=== PATIENT | female | born 1950 | race Caucasian/White ===

== ENCOUNTER 2017-07-08 19:56 | Inpatient (IN) | payer MEDICARE ==
[~2017-07-08 19:56] MED LIST: ISOVUE-370 76%-LOCM 1 ML ONE
[2017-07-08] MEDS ORDERED: fentaNYL Citrate/PF 2,000 MCG in Sodium Chloride 0.9% 60 ML IV SCH (20:15)
[2017-07-08 20:28] LABS: Mean Corpuscular HGB CONC 31.2 g/dL (32.0-36.0); Mean Corpuscular Hemoglobin 30.6 pg (27.0-31.0); Mean Corpuscular Volume 98.2 fl (81.0-99.0); Platelet Count 280 thou/uL (130-400); RBC Distribution Width 11.5 % (11.5-14.5); Red Blood Cell (RBC) Count 4.24 mill/uL (4.20-5.40); White Blood Cell (WBC) Count 18.2 thou/uL (4.8-10.8)
[2017-07-08 20:50] LABS: Band 15 % (5-11); Eosinophils 1 % (0-10); Lymphocytes 13 % (21-51); MDiff Complete? YES; Monocytes 9 % (0-10); Neutrophil 62 % (42-75); PLT Morphology Comment Appears Adequate
--- NOTE | 2017-07-08 20:54 | RAD ---
FRONTAL RADIOGRAPH CHEST PORTABLE SUPINE 07/08/17 at 8:07 p.m. COMPARISON: 07/08/17 at 6:09 p.m. HISTORY: Intubated patient. FINDINGS: Nasogastric tube curls in left upper quadrant. Patient is rotated to the left. There is an endotrache al tube in place. It probably extends into the right main stem bronchus. The endotracheal tube is at least 6 cm below the level of the clavicles and should thus be retracted. IMPRESSION: Low lying endotracheal tube. Recommend retraction. Call made to Dr. Penny, 8:15 p.m., 07/08/17. Code CR POS: [facility]
[2017-07-08 20:55] LABS: INR-International Normal Ratio 1.2; PTT 65.1 SEC (22.9-36.1); Prothrombin Time 15.3 SEC (12.0-14.7)
[2017-07-08 20:57] LABS: ALT (SGPT) 140 U/L (8-55); AST (SGOT) 181 U/L (5-34); Albumin 3.9 g/dL (3.4-4.8); Alkaline Phosphatase 137 U/L (40-150); Anion Gap 20 mmol/L (10-20); BUN (Urea Nitrogen) 20 mg/dL (9.8-20.1); Bilirubin, Total 0.4 mg/dL (0.2-1.2); CK (CPK) 334 U/L (29-168); Calc. Creatinine Clearance 0 mL/min (70-130); Calcium 8.5 mg/dL (7.8-10.44); Carbon Dioxide 16 mmol/L (23-31); Chloride 102 mmol/L (98-107); Estimated GFR-MDRD 34; Globulin 3.3 g/dL (2.4-3.5); Glucose 236 mg/dL (80-115); Potassium 4.2 mmol/L (3.5-5.1); Protein, Total 7.2 g/dL (6.0-8.3); Sodium 134 mmol/L (136-145)
[2017-07-08 21:01] LABS: Bilirubin Negative (Negative); Blood, Urine Moderate (Negative); Clarity CLEAR (Clear); Glucose, Urine (Dipstick) 100 mg/dL (Negative); Leukocyte Negative (Negative); Nitrite Negative (Negative); Protein, Urine (Dipstick) 30 mg/dL (Neg-Trace); Specific Gravity, Urine 1.011 (1.002-1.036); Urobilinogen 0.2 mg/dL (0.2-1.0)
[2017-07-08 21:02] LABS: Bacteria/HPF None Seen HPF (None Seen); Hyaline Casts/LPF 0-3 HYALINE CAST LPF (0-3 Hyaline); RBC/HPF 0-3 HPF (0-3); Squamous Epithelial 0-3 HPF (0-3); WBC/HPF 0-3 HPF (0-3)
[2017-07-08 21:18] LABS: Troponin I 0.032 ng/mL (< 0.028)
[2017-07-08 22:30] LABS: CO2 Tension 49.6 mmHg (35.0-45.0); pH, Arterial 7.22 (7.35-7.45)
[2017-07-08 22:31] LABS: Actual Bicarbonate (HCO3a) 19.8 mEq/L (22-26); Base Excess (BEa) -7.9 mEq/L (0 (+/-) 2.5); O2 Tension (PaO2) 116.9 mmHg (80.0-100.0); Potassium - ABG Lab 3.4 mmol/L (3.70-5.30)
[2017-07-08 22:32] LABS: Analyzer IN Cardio ER; Calcium, Ionized 1.1 mmol/L (1.12-1.30); Puncture Site RRA
--- NOTE | 2017-07-08 22:35 | CT ---
HEAD CT WITHOUT CONTRAST 07/08/17 COMPARISON: 09/26/13 HISTORY: Status post CPR, choking episode with aspiration of a hotdog. Unresponsive intubated patient with alt ered mental status. TECHNIQUE: Serial axial CT imaging at 5 mm intervals from the vertex through the skull base without contrast. FINDINGS: Nasogastric tube is present. There is mild mucosal thickening of bilateral ethmoid air cells. There i s no displaced calvarial fracture. No intracranial hemorrhage, midline shift, mass effect or ventricular enlargement. IMPRESSION: No acute intracranial abnormality. POS: [facility]
[2017-07-08] MEDS ORDERED: Vasopressin 40 UNIT, Admixture Fee 1 EACH in Sodium Chloride 0.9% 100 ML IV SCH (22:45)
--- NOTE | 2017-07-08 22:57 | CT ---
CT OF ABDOMEN AND PELVIS 07/08/17 COMPARISON: None. HISTORY: Aspiration, poor breath sounds, status post CPR. TECHNIQUE: Serial axial CT imaging at 5 mm intervals from the thoracic inlet through the upper abdomen with IV c ontrast. Coronal reformatted imaging obtained. FINDINGS: Nasogastric tube extends into the gastric body. There is an endotracheal tube which extends into the left main stem bronchus. There is a 1.3 cm foreign body within the proximal aspect of the left main stem bronchus, best seen o n coronal image 105 and axial image 15 measuring 1.3 cm. Perhaps this represents the aspirated portio n of hotdog mentioned in the patient's history. No axillary, mediastinal or hilar adenopathy. No pneumothorax seen on either side. There is partial consolidation of the posteromedial aspect of th e right upper lobe There is partial consolidation/collapse of both lower lobes, left greater than rig ht. There are areas of reticulonodular density within the posterior superior right middle lobe as wel l. The pulmonary parenchymal opacities may signify volume loss and/or aspiration. There is a small to moderate sized hiatal hernia. There is atherosclerotic calcification of the aortic arch. Osseous structures of the chest demonstrate anterior left second, third, fourth, fifth, sixth, and se venth rib fractures. There are anterior right third, fourth, fifth, sixth, seventh, eighth, and ninth rib fractures. Multilevel degenerative change is noted within the thoracic spine. No free intraperitoneal air is noted. There is a Wall catheter in the urinary bladder. There is a round mass in the pelvis which measures 11.1 x 8.9 cm. This demonstrates peripheral irregu lar calcifications and is felt to most likely represent a prominent fibroid uterus. Recommend correla tion with followup nonemergent pelvic ultrasound for confirmation. There is no evidence for bowel inflammatory change or obstruction. The appendix is visualized. There is a right femoral venous catheter. The liver is unremarkable aside from mild intrahepatic biliary dilatation, likely associated with rene or cholecystectomy. There is fatty atrophy of the pancreas. The spleen is unremarkable as are the kid neys and the left adrenal gland. 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 There is multilevel lower lumbar spine facet hypertrophic change. IMPRESSION: 1. Significant bilateral pulmonary parenchymal opacities suggests atelectasis and/or aspiration. 2. Right main stem bronchus intubation. 3. Foreign body within left main stem bronchus, most consistent with history of aspirated materi al. 4. Numerous bilateral rib fractures. 5. Pelvic mass, likely a fibroid uterus. Recommend confirmation with pelvic ultrasound. Numerous additional incidental findings as above. All findings discussed with Dr. Penny at 10:35 p.m., 07/08/17. Code CR POS: [facility]
--- NOTE | 2017-07-08 23:17 | RAD ---
FRONTAL RADIOGRAPH CHEST 07/08/17 at 11:02 p.m. COMPARISON: 07/08/17 at 8:07 p.m. HISTORY: Re-evaluate endotracheal tube. FINDINGS: The endotracheal tube has been retracted, now overlying the tracheal air column approximately 2.5 cm below the level of the clavicles. Nasogastric tube extends into left upper quadrant. Bibasilar air sp mukesh disease noted, left greater than right, better assessed on recent CT. IMPRESSION: Endotracheal tube and nasogastric tube as above. POS: [facility]
[2017-07-08 23:28] LABS: Actual Bicarbonate (HCO3a) 18.6 mEq/L (22-26); Base Excess (BEa) -8.8 mEq/L (0 (+/-) 2.5); CO2 Tension 46.8 mmHg (35.0-45.0); Hematocrit-ABG 34.4 % (36.0-47.0); pH, Arterial 7.22 (7.35-7.45)
[2017-07-08 23:29] LABS: Analyzer IN Cardio ER; Potassium - ABG Lab 3.8 mmol/L (3.70-5.30)
[2017-07-08 23:30] LABS: Puncture Site RRA
--- NOTE | 2017-07-09 00:15 | HP ---
PRIMARY CARE PHYSICIAN: Dr. Badillo. CHIEF COMPLAINT: Choked on a hot dog and has been unresponsive. HISTORY OF PRESENT ILLNESS: Ms. Matson is a 66-year-old female who lives with her sister. She was in her usual state of health until the night of admission. Her sister and her nephew were here at the bedside and are the historian. Apparently, she choked while eating a hot. Her nephew started CPR an d also first tried to perform a Heimlich maneuver and then started CPR. He was doing this until the EMS arrived. He believes it took about anywhere from 15-30 minutes before the EMS got there and appa rently she was intubated in the ambulance and then brought originally to [place] and then transferre d to our facility for further treatment. The nephew is pretty certain that she choked and did not mccoy ve a seizure or any stroke-like activity prior to the choking episode. Prior to this, there have bee n no other complaints. Her sister says that she had been diabetic before, but had lost a lot of weig ht and had been taken off of diabetes medications. She had gained some weight in the past, but other blake no other complaints that she knows about. REVIEW OF SYSTEMS: Unobtainable as the patient is intubated. PAST MEDICAL HISTORY: Taken from the sister at bedside and includes hypertension, hypothyroidism, me ntal retardation, diabetes mellitus type 2, and gastroesophageal reflux disease as well as irritable bowel syndrome. PAST SURGICAL HISTORY: She has had bilateral total knee replacement as well as cholecystectomy. ALLERGIES: No known drug allergies. FAMILY HISTORY: Significant for heart disease and diabetes mellitus. SOCIAL HISTORY: She is a nonsmoker, nondrinker, single. She lives with her sister, there is no chil dren. Sister's name is Lesley Hernandez and she is the medical decision maker. MEDICATIONS: These are taken from the bottles in the room include aspirin 81 mg daily, trazodone 100 mg at bedtime, doxepin 10 mg at bedtime, escitalopram 5 mg daily, metoprolol extended release 50 mg daily, quinapril 40 mg in the a.m. and 20 mg in the p.m., levothyroxine 100 mcg daily, pantoprazole 4 0 mg twice a day, lovastatin 20 mg at bedtime, amlodipine 5 mg daily, benztropine 2 mg twice a day. PHYSICAL EXAMINATION: GENERAL: She is intubated. Apparently, she had some movement spontaneous prior to being intubated. VITAL SIGNS: Blood pressure currently is approximately 120/50; however, she is currently on a Levoph ed drip. Her heart rate is approximately 110. HEENT: Her pupils are approximately about 6 mm and sluggish. NECK: There is no adenopathy. LUNGS: She has got some rales bilaterally. CARDIOVASCULAR: She has a normal S1, S2. I did not appreciate an S3 or S4. No murmurs, clicks or r ubs. ABDOMEN: Obese, positive for bowel sounds. EXTREMITIES: There is no edema. NEUROLOGIC: She had been moving all extremities. SIGNIFICANT LABORATORY DATA: White blood cell count 18.2, hemoglobin 13, hematocrit is 41.6, platele t count is 280, INR is 1.2. Chemistries: Sodium 134, potassium 4.2, chloride is 102, CO2 is 16, BUN of 20, creatinine 1.52, glucose is 236, lactic acid 3.9, AST 181, ALT is 140, creatine kinase is 334 . She had a CT scan of the brain which was negative for any acute intracranial abnormality and she h ad a CT scan of the chest, abdomen, and pelvis and there was some atelectasis or opacities in both of the lung parenchyma. There was foreign body in the left main stem bronchus. There are numerous john paul ateral rib fractures and a pelvic mass, likely representing a uterine fibroid. ASSESSMENT AND PLAN: This is a 66-year-old female who unfortunately suffered a choking episode which led to a cardiopulmonary arrest. She is being admitted to the ICU. She is currently on the ventila tor and will continue ventilator support. Pulmonology has been consulted and actually Dr. Tuttle has just arrived in the emergency room and to help evaluate the patient. We will place her on a sedation protocol, empiric antibiotics for aspiration. Sliding scale insulin with regards to her diabetes me llitus and further recommendations to follow.
[2017-07-09] MEDS ORDERED: Morphine 2 MG/ML SYRINGE SLOW IVP PRN (00:19)
[2017-07-09] MEDS ORDERED: Fentanyl BOLUS 250 ML IVPB PRN (00:19)
[2017-07-09] MEDS ORDERED: DISCONTINUE PREVIOUS NARCOTIC PAIN MEDICATIONS AND BENZODIAZEPINES FS SCH (00:19)
[2017-07-09] MEDS ORDERED: Lorazepam 2 MG/ML VIAL SLOW IVP PRN (00:19)
[2017-07-09] MEDS ORDERED: Sodium Chloride 0.9% 1,000 ML IV SCH (00:22)
[2017-07-09] MEDS ORDERED: Acetaminophen 325 MG TAB PO PRN (00:22)
[2017-07-09] MEDS ORDERED: Norepinephrine 8 MG/250 ML BAG IVPB PRN ×2 (00:23→05:51)
[2017-07-09 00:41] LABS: Lactic Acid 3.6 mmol/L (0.5-2.2)
[2017-07-09] MEDS ORDERED: HumaLOG 300 UNITS/3 ML VIAL SC PRN (00:45)
[2017-07-09] MEDS ORDERED: Dextrose 50% Abboject 50 ML SYRINGE SLOW IVP PRN (00:45)
[2017-07-09] MEDS ORDERED: Dextrose 5% in Water 1,000 ML IV PRN (00:45)
[2017-07-09] MEDS ORDERED: Acetaminophen 650 MG Suppository PR PRN (00:45)
[2017-07-09 00:49] LABS: Troponin I 0.107 ng/mL (< 0.028)
[2017-07-09 01:39] VITALS: BMI 35.6
[2017-07-09] MEDS: Sodium Chloride 0.9% 1,000 ML IV SCH ×2 (02:03→09:29)
[2017-07-09] MEDS: Propofol 1,000 MG/100 ML VIAL IV PRN ×2 (02:26→22:06)
[2017-07-09 04:33] LABS: Band 23 % (5-11); Hemoglobin 11.2 g/dL (12.0-16.0); Lymphocytes 5 % (21-51); MDiff Complete? YES; Mean Corpuscular HGB CONC 32.4 g/dL (32.0-36.0); Mean Corpuscular Hemoglobin 31.6 pg (27.0-31.0); Mean Corpuscular Volume 97.4 fl (81.0-99.0); Mean Platelet Volume 7.2 fL (7.4-10.4); Monocytes 3 % (0-10); Neutrophil 69 % (42-75); PLT Morphology Comment Appears Adequate; Platelet Count 221 thou/uL (130-400); RBC Distribution Width 11.6 % (11.5-14.5); Red Blood Cell (RBC) Count 3.53 mill/uL (4.20-5.40); White Blood Cell (WBC) Count 11.6 thou/uL (4.8-10.8)
[2017-07-09 04:59] LABS: Troponin I 0.133 ng/mL (< 0.028)
[2017-07-09 05:06] LABS: Anion Gap 14 mmol/L (10-20); BUN (Urea Nitrogen) 21 mg/dL (9.8-20.1); Calc. Creatinine Clearance 58 mL/min (70-130); Calcium 7.5 mg/dL (7.8-10.44); Carbon Dioxide 17 mmol/L (23-31); Chloride 108 mmol/L (98-107); Estimated GFR-MDRD 37; Glucose 210 mg/dL (80-115); Potassium 4.3 mmol/L (3.5-5.1); Sodium 135 mmol/L (136-145)
[2017-07-09] MEDS: Piperacillin/Tazobactam 3.375 GM in Sodium Chloride 0.9% 100 ML IVPB SCH ×3 (05:53→18:08)
[2017-07-09] MEDS: HumaLOG 300 UNITS/3 ML VIAL SC PRN ×3 (05:58→18:13)
[2017-07-09] MEDS ORDERED: Ondansetron PF 4 MG/2 ML Vial IVP PRN (07:32)
[2017-07-09] MEDS ORDERED: Bisacodyl 10 MG SUPP PR PRN (07:32)
[2017-07-09] MEDS ORDERED: Eucerin (Mineral Oil/Petrolatum,White) 30 gm Jar TOP PRN (07:32)
[2017-07-09] MEDS ORDERED: Artificial Tears 18 DROP/0.9 ML EA EYE PRN (07:32)
[2017-07-09] MEDS ORDERED: Fleet Enema 133 ML BOT PR PRN (07:32)
[2017-07-09] MEDS ORDERED: Ondansetron ODT 4 MG TAB PO PRN (07:32)
--- NOTE | 2017-07-09 08:01 | RAD ---
PORTABLE CHEST 1 VIEW: DATE: 07/09/17. TIME: 7:33 a.m. HISTORY: Respiratory failure. FINDINGS/IMPRESSION: Comparison is made with the exam of previous night. The tip of the endotracheal tube is just above t he level of the clavicular heads. Nasogastric tube is within the stomach. There are patchy opacitie s in the right lung and consolidation/atelectatic change the left lung base. No pneumothoraces are s een. POS: [facility]
[2017-07-09 08:05] LABS: Actual Bicarbonate (HCO3a) 17.4 mEq/L (22-26); Base Excess (BEa) -7.6 mEq/L (0 (+/-) 2.5); CO2 Tension 33.5 mmHg (35.0-45.0); O2 Tension (PaO2) 61.8 mmHg (80.0-100.0); pH, Arterial 7.33 (7.35-7.45)
[2017-07-09 08:06] LABS: Hematocrit-ABG 30.9 % (36.0-47.0); Hemoglobin (Hb) 10.7 g/dL (12.0-16.0)
[2017-07-09 08:13] LABS: ALV-art Gradient 395.425 (0-20); Analyzer IN Cardio OR; Carboxyhemoglobin (COHb) 1.1 gm% (0.0-3.0); Potassium - ABG Lab 4.1 mmol/L (3.70-5.30); Puncture Site RBA
[2017-07-09] MEDS ORDERED: Famotidine/PF 20 mg/2ml Vial SLOW IVP SCH (09:00)
[2017-07-09] MEDS: Enoxaparin Sodium 40 MG/0.4 ML SYRINGE SC SCH (09:20)
[2017-07-09] MEDS: Famotidine/PF 20 mg/2ml Vial SLOW IVP SCH (09:22)
--- NOTE | 2017-07-09 09:39 | PDOC.PN ---
- Subjective Encounter Start Date: 07/09/17 Encounter Start Time: 07:00 -: old records requested/rev pt is intubated and sedated, Patient seen and examined. No overnight events - Objective Resuscitation Status: Resuscitation Status FULL:Full Resuscitation MAR Reviewed: Yes Vital Signs & Weight: Vital Signs (12 hours) Temp Pulse Resp BP Pulse Ox 07/09/17 08:00 99.7 F H 07/09/17 06:36 108 H 108/60 07/09/17 04:00 98.5 F 20 07/09/17 02:37 107 H 122/63 07/09/17 00:30 105 H 07/09/17 00:15 97.8 F 105 H 22 H 93 L Weight Weight 207 lb 14.334 oz Most Recent Monitor Data Heart Rate from ECG 110 NIBP 126/78 NIBP BP-Mean 96 Respiration from ECG 20 SpO2 95 I&O: 07/08/17 07/09/17 07/10/17 06:59 06:59 06:59 Intake Total 18 Output Total 370 70 Balance -352 -70 Result Diagrams: 07/09/17 04:06 07/09/17 04:06 Additional Labs: Accuchecks 07/09/17 07/09/17 05:58 03:00 POC Glucose 213 H 223 H Radiology Reviewed by me: Yes (chest xray) EKG Reviewed by me: Yes (nsr) Phys Exam - Physical Examination Constitutional: NAD intubated, sedated NG tube+ HEENT: PERRLA, sclera anicteric Neck: no JVD, supple Respiratory: no wheezing, no rales, no rhonchi Cardiovascular: RRR, no significant murmur, no rub Gastrointestinal: soft, no distention, positive bowel sounds Musculoskeletal: no edema, pulses present Lymphatic: no nodes Skin: no rash, normal turgor Dx/Plan (1) Acute respiratory failure with hypoxia and hypercapnia Code(s): J96.01 - ACUTE RESPIRATORY FAILURE WITH HYPOXIA; J96.02 - ACUTE RESPIRATORY FAILURE WITH HYPERCAPNIA Status: Acute (2) Acidosis, metabolic, with respiratory acidosis Code(s): E87.4 - MIXED DISORDER OF ACID-BASE BALANCE Status: Acute (3) Acute kidney failure Status: Acute (4) Aspiration pneumonia Code(s): J69.0 - PNEUMONITIS DUE TO INHALATION OF FOOD AND VOMIT Status: Acute (5) Bandemia Code(s): D72.825 - BANDEMIA Status: Acute (6) Cardiopulmonary arrest with successful resuscitation Code(s): I46.9 - CARDIAC ARREST, CAUSE UNSPECIFIED Status: Acute (7) Demand ischemia of myocardium Code(s): I24.8 - OTHER FORMS OF ACUTE ISCHEMIC HEART DISEASE Status: Acute (8) Ischemic hepatitis Code(s): K75.9 - INFLAMMATORY LIVER DISEASE, UNSPECIFIED Status: Acute (9) Anxiety and depression Code(s): F41.8 - OTHER SPECIFIED ANXIETY DISORDERS Status: Chronic (10) Dyslipidemia Code(s): E78.5 - HYPERLIPIDEMIA, UNSPECIFIED Status: Chronic (11) GERD (gastroesophageal reflux disease) Code(s): K21.9 - GASTRO-ESOPHAGEAL REFLUX DISEASE WITHOUT ESOPHAGITIS Status: Chronic (12) Hypertension Code(s): I10 - ESSENTIAL (PRIMARY) HYPERTENSION Status: Chronic (13) Hypothyroidism Code(s): E03.9 - HYPOTHYROIDISM, UNSPECIFIED Status: Chronic (14) Normocytic normochromic anemia Code(s): D64.9 - ANEMIA, UNSPECIFIED Status: Chronic (15) Obesity (BMI 30-39.9) Code(s): E66.9 - OBESITY, UNSPECIFIED Status: Chronic (16) Uterine fibroid Code(s): D25.9 - LEIOMYOMA OF UTERUS, UNSPECIFIED Status: Chronic - Plan cont current plan of care, continue antibiotics, respiratory therapy * currently on zosyn * ventilator sedation protocol * vent per pulmonary * will monitor labs * she has multiple organ involvement * prognosis is guarded * medication reviewed as below * symptomatic treatment. * will give her bolus fluid this morning for her hypotension and tachycardia Review of Systems - Review of Systems Other: unable to review due to intubated status - Medications/Allergies Allergies/Adverse Reactions: Allergies Allergy/AdvReac Type Severity Reaction Status Date / Time No Allergy Information Allergy Verified 07/09/17 05:06 Available Medications: Current Medications Acetaminophen (Tylenol) 650 mg PO Q4H PRN PRN Reason: Headache/Fever or Pain Stop: 07/09/17 10:30 Acetaminophen (Tylenol) 650 mg SD Q4H PRN PRN Reason: Headache/Fever or Pain Artificial Tears (Tears Naturale) 0 drop EA EYE PRN PRN PRN Reason: Dry Eyes Bisacodyl (Dulcolax) 10 mg SD DAILYPRN PRN PRN Reason: Constipation Dextrose/Water (Dextrose 50%) 25 gm SLOW IVP PRN PRN PRN Reason: Hypoglycemia Enoxaparin Sodium (Lovenox) 40 mg SC 0900 [facility] Last Admin: 07/09/17 09:20 Dose: 40 mg Famotidine (Pepcid) 20 mg SLOW IVP Q24HR [facility] Last Admin: 07/09/17 09:22 Dose: 20 mg Glucagon (Glucagon) 1 mg IM PRN PRN PRN Reason: Hypoglycemia Hydralazine HCl (Apresoline) 10 mg SLOW IVP Q4H PRN PRN Reason: Systolic BP > 180 Fentanyl Citrate 2,000 mcg/ (Sodium Chloride) 100 mls @ 0 mls/hr IV INF [facility]; Per Protocol PRN Reason: Protocol Stop: 08/08/17 00:19 Fentanyl Citrate (Fentanyl Bolus) 250 mls @ 0 mls/hr IVPB PRN PRN; As Directed PRN Reason: Breakthrough pain Stop: 08/08/17 00:19 Dextrose/Water (D5w) 1,000 mls @ 0 mls/hr IV .Q0M PRN; As Directed PRN Reason: Hypoglycemia Sodium Chloride (Normal Saline 0.9%) 1,000 mls @ 75 mls/hr IV .[id number] [facility] Last Admin: 07/09/17 09:29 Dose: 1,000 mls Piperacillin Sod/Tazobactam (Sod 3.375 gm/ Sodium Chloride) 100 mls @ 200 mls/ hr IVPB Q6HR [facility] Last Admin: 07/09/17 05:53 Dose: 100 mls Norepinephrine Bitartrate (Levophed) 250 mls @ 0 mls/hr IVPB INF PRN; Protocol ; Titrate PRN Reason: Blood Pressure Insulin Human Lispro (Humalog) 0 units SC .MODERATE SLIDING SC PRN PRN Reason: Moderate Correctional Scale Last Admin: 07/09/17 05:58 Dose: 4 unit Insulin Human Lispro (Humalog) 0 units SC .BEDTIME SLIDING SC PRN PRN Reason: Bedtime Correctional Scale Lorazepam (Ativan) 2 mg SLOW IVP Q2H PRN PRN Reason: Anxiety to achieve Mitchell 2-3 Stop: 08/08/17 00:19 Mineral Oil/White Petrolatum (Eucerin Cream) 0 gm TOP BIDPRN PRN PRN Reason: Dry Skin Morphine Sulfate (Morphine) 2 mg SLOW IVP Q2H PRN PRN Reason: Breakthrough pain Stop: 08/08/17 00:22 Ondansetron HCl (Zofran Odt) 4 mg PO Q6H PRN PRN Reason: Nausea/Vomiting Ondansetron HCl (Zofran) 4 mg IVP Q6H PRN PRN Reason: Nausea/Vomiting Pneumococcal 13-Valent Conj Vacc (Prevnar) 0.5 ml IM .ONCE ONE Stop: 07/11/17 09:01 Propofol (Diprivan) 1,000 mg IV INF PRN; Protocol PRN Reason: TO ACHIEVE MITCHELL SCORE 2-3 Stop: 08/08/17 00:19 Last Admin: 07/09/17 02:26 Dose: 1,000 mg Sodium Biphosphate/Sodium Phosphate (Fleet Enema) 133 ml SD ONE PRN PRN Reason: Constipation Stop: 07/15/17 07:33 Sodium Chloride (Flush - Normal Saline) 10 ml IVF Q12HR [facility] Last Admin: 07/09/17 09:20 Dose: 10 ml Sodium Chloride (Flush - Normal Saline) 10 ml IVF PRN PRN PRN Reason: Saline Flush
--- NOTE | 2017-07-09 10:29 | CON ---
DATE OF CONSULTATION: 07/08/2017 HISTORY OF PRESENT ILLNESS: Ms. Matson was eating with family this evening and apparently choked on a hot dog. She had removal of the obstruction by her nephew. CPR was begun very shortly thereafter, which she had 15 minutes of CPR before the first responders arrived and then I believe there was abou t another 20 minutes before the environmental director arrived. She has a 6-[address] Family tells me she was awaken up over in [place] and was sedated prior to transfer. I was told by the physician here that she had not received any sedation. She was hypotensive when I was called. She had received a liter prior to arrival and a liter here. I recommended 2 more liters of fluid while I was driving to the hospital. When I arrived here, her b lood pressure was over 100 systolic. Her heart rate was 90. Respiratory rate was per mechanical pablito tilation. She is on a transfer ventilator, so I cannot really review any of her pulmonary mechanics. PHYSICAL EXAMINATION: EYES: Pupils are sluggish. Sclerae are anicteric. LUNGS: Remarkable for coarse equal breath sounds. HEART: Regular rhythm. ABDOMEN: Soft. EXTREMITIES: Without asymmetry. There is no other information immediately available as far as recent or prior health. ALLERGIES: There were no reported drug allergies. IMPRESSION: Status post cardiorespiratory arrest. I am told that there was a weak pulse when the EM Ts arrived. Hopefully, CPR, which was done from what I can tell very promptly will be somewhat effective at minim izing her hypoperfusion injury. If she starts waking up, we will have to consider changing out her endotracheal tube. LABORATORY DATA: Her white count is 18.2, hemoglobin 13, platelets 280,000. Sodium 134, potassium 4 .2, chloride 102, bicarbonate 16, BUN 20, creatinine 1.52. A pH of 7.22, CO2 of 49, pO2 of 116. This is on a rate of 12. The rate will need to be increased to 20. IMPRESSION: Status post cardiorespiratory arrest associated with foreign body aspiration (hot dog). Chest radiograph has been reviewed by me. Her ET tube is in proper position at this point in time. There are no pulmonary infiltrates, she will connected to a regular volume ventilator since she arri ves in the ICU. CRITICAL CARE TIME: 35 minutes.
--- NOTE | 2017-07-09 12:58 | PRG ---
DATE OF SERVICE: 07/09/2017 SUBJECTIVE: Ms. Matson has not improved neurologically. She is moving, overbreathing the vent and mccoy s corneals and gag and cough today. OBJECTIVE: VITAL SIGNS: Her blood pressure is 97/60, heart rate 113, respiratory rate is 20, oximetry is 95%. HEENT: Pupils are sluggish to react. LUNGS: Clear. CARDIOVASCULAR: Regular rhythm, S1 and S2 are normal. ABDOMEN: Soft. EXTREMITIES: Without asymmetry. LABORATORY DATA: White count 11.6, hemoglobin 11.2, platelets 221,000. Sodium 135, potassium 4.3, chloride 108, bicarbonate 17, BUN 21, creatinine 1.43. PH 7.33, CO2 33, pO2 61. IMPRESSION: Status post cardiorespiratory arrest. She had CPR for 30 minutes, although EMS said she had a pulse when they arrived. It is unclear whether or not there was actually a pulse in my opinio n. She appears to have sustained significant anoxic injury. We will need to continue for several mo re days before we can decide whether or not she is improving. Other problems include acute on chroni c kidney disease, mild metabolic acidosis that is improving, mild anemia with high normal mean corpus cular volume. We are not having any acute ventilation issues. We will continue with daily labs, chest x-rays and n eurological exams. Her prognosis is quite guarded. ADDENDUM: She will have enteral feeds started. Family will be updated. Here, when I made rounds today, I had a long meeting with them late last nig ht; I explained to them this will be a very slow process if she will recover from this neurologically . Critical care time 30 minutes.
[2017-07-09] MEDS: fentaNYL Citrate/PF 2,000 MCG in Sodium Chloride 0.9% 60 ML IV SCH (17:50)
[2017-07-10 05:45] LABS: Anion Gap 11 mmol/L (10-20); BUN (Urea Nitrogen) 32 mg/dL (9.8-20.1); Calc. Creatinine Clearance 43 mL/min (70-130); Calcium 8.4 mg/dL (7.8-10.44); Carbon Dioxide 19 mmol/L (23-31); Chloride 111 mmol/L (98-107); Estimated GFR-MDRD 26; Glucose 183 mg/dL (80-115); Potassium 3.8 mmol/L (3.5-5.1); Sodium 137 mmol/L (136-145)
[2017-07-10 05:51] LABS: Band 9 % (5-11); Hemoglobin 9.4 g/dL (12.0-16.0); Lymphocytes 9 % (21-51); MDiff Complete? YES; Mean Corpuscular HGB CONC 31.4 g/dL (32.0-36.0); Mean Corpuscular Hemoglobin 30.2 pg (27.0-31.0); Mean Corpuscular Volume 96.3 fl (81.0-99.0); Mean Platelet Volume 7.6 fL (7.4-10.4); Metamyelocyte 5 % (0-0); Neutrophil 77 % (42-75); PLT Morphology Comment Appears Adequate; Platelet Count 202 thou/uL (130-400); Polychromasia SLIGHT = 2-3 cells (100X) (0-2/hpf); RBC Distribution Width 11.8 % (11.5-14.5); White Blood Cell (WBC) Count 10.6 thou/uL (4.8-10.8)
[2017-07-10] MEDS: Piperacillin/Tazobactam 3.375 GM in Sodium Chloride 0.9% 100 ML IVPB SCH ×4 (06:00→17:21)
[2017-07-10] MEDS: Sodium Chloride 0.9% 1,000 ML IV SCH ×2 (07:22→16:17)
[2017-07-10] MEDS: Enoxaparin Sodium 40 MG/0.4 ML SYRINGE SC SCH (08:08)
[2017-07-10] MEDS: Famotidine/PF 20 mg/2ml Vial SLOW IVP SCH (08:08)
[2017-07-10 08:42] LABS: Actual Bicarbonate (HCO3a) 19.1 mEq/L (22-26); CO2 Tension 40.9 mmHg (35.0-45.0); Carboxyhemoglobin (COHb) 0.8 gm% (0.0-3.0); Hematocrit-ABG 26.3 % (36.0-47.0); Hemoglobin (Hb) 8.2 g/dL (12.0-16.0); O2 Tension (PaO2) 64.7 mmHg (80.0-100.0); pH, Arterial 7.29 (7.35-7.45)
[2017-07-10 08:43] LABS: ALV-art Gradient 311.975 (0-20); Calcium, Ionized 1.2 mmol/L (1.12-1.30); Puncture Site RRA
--- NOTE | 2017-07-10 08:54 | PDOC.PN ---
- Subjective Encounter Start Date: 07/10/17 Encounter Start Time: 08:52 Subjective: seen and examined still on the vent - Objective Resuscitation Status: Resuscitation Status FULL:Full Resuscitation Vital Signs & Weight: Vital Signs (12 hours) Temp Pulse Resp BP Pulse Ox 07/10/17 08:20 108 H 124/63 07/10/17 08:00 99.1 F 106 H 20 96 07/10/17 04:00 97.5 F L 20 07/10/17 02:07 104 H 115/77 07/10/17 00:00 98.6 F 20 07/09/17 22:41 117 H Weight Admit Weight 207 lb 14.32 oz Weight 207 lb 14.32 oz Most Recent Monitor Data Heart Rate from ECG 106 NIBP 118/59 NIBP BP-Mean 71 Respiration from ECG 20 SpO2 96 I&O: 07/09/17 07/10/17 07/11/17 06:59 06:59 06:59 Intake Total 18 2981.1 Output Total 370 503 320 Balance -352 2478.1 -320 Result Diagrams: 07/10/17 05:23 07/10/17 05:23 Additional Labs: Accuchecks 07/10/17 07/09/17 07/09/17 01:58 18:14 12:21 POC Glucose 159 H 173 H 192 H Phys Exam - Physical Examination Constitutional: NAD HEENT: PERRLA, moist MMs, sclera anicteric Neck: no nodes, no JVD, supple Respiratory: no wheezing vented sounds Cardiovascular: RRR, no significant murmur, no rub Gastrointestinal: soft, non-tender, no distention, positive bowel sounds Musculoskeletal: pulses present Dx/Plan (1) Acidosis, metabolic, with respiratory acidosis Code(s): E87.4 - MIXED DISORDER OF ACID-BASE BALANCE Status: Acute (2) Acute kidney failure Status: Acute (3) Acute respiratory failure with hypoxia and hypercapnia Code(s): J96.01 - ACUTE RESPIRATORY FAILURE WITH HYPOXIA; J96.02 - ACUTE RESPIRATORY FAILURE WITH HYPERCAPNIA Status: Acute (4) Aspiration pneumonia Code(s): J69.0 - PNEUMONITIS DUE TO INHALATION OF FOOD AND VOMIT Status: Acute (5) Cardiopulmonary arrest with successful resuscitation Code(s): I46.9 - CARDIAC ARREST, CAUSE UNSPECIFIED Status: Acute (6) Demand ischemia of myocardium Code(s): I24.8 - OTHER FORMS OF ACUTE ISCHEMIC HEART DISEASE Status: Acute (7) Ischemic hepatitis Code(s): K75.9 - INFLAMMATORY LIVER DISEASE, UNSPECIFIED Status: Acute (8) Dyslipidemia Code(s): E78.5 - HYPERLIPIDEMIA, UNSPECIFIED Status: Chronic (9) GERD (gastroesophageal reflux disease) Code(s): K21.9 - GASTRO-ESOPHAGEAL REFLUX DISEASE WITHOUT ESOPHAGITIS Status: Chronic (10) Hypertension Code(s): I10 - ESSENTIAL (PRIMARY) HYPERTENSION Status: Chronic (11) Hypothyroidism Code(s): E03.9 - HYPOTHYROIDISM, UNSPECIFIED Status: Chronic (12) Obesity (BMI 30-39.9) Code(s): E66.9 - OBESITY, UNSPECIFIED Status: Chronic - Plan cont current plan of care, plan discussed w/ family, rivas catheter, continue antibiotics, PT/OT, foster care social worker, respiratory therapy Vent management per pulmonary -: Prognosis guarded * .
--- NOTE | 2017-07-10 09:56 | PRG ---
DATE OF SERVICE: 07/10/2017 Thirty-five minutes critical care time. SUBJECTIVE: The patient remains intubated on mechanical ventilation. When stimulated, she will with draw with her left leg and both arms. She gets very agitated when stimulated in terms of her heart r ate going up. PHYSICAL EXAMINATION: VITAL SIGNS: Temperature 99.1, pulse anywhere from 108 to 153, blood pressure 152/105. A 24-hour in take 2981, output 503, all of that through urine. HEENT: Pupils are reactive. Sclerae are anicteric. Oropharynx is clear. NECK: No JVD. LUNGS: Clear anteriorly. CARDIOVASCULAR: S1, S2, tachycardic. ABDOMEN: Soft, obese, nontender. EXTREMITIES: Trace edema. LABORATORY DATA: White blood cell count 10.6, hematocrit 29.9, platelet count 202. PH of 7.29, pCO2 of 40, pO2 of 64 on SIMV rate 20, tidal volume 500, PEEP 7, pressure support 10, FIO2 60%. Sodium 1 37, potassium 3.8, chloride 111, CO2 of 19, BUN 32, creatinine 1.9, glucose 183. ASSESSMENT: 1. Status post prolonged cardiopulmonary arrest with deep anoxic brain injury. 2. Renal insufficiency. 3. Acute respiratory failure, requiring mechanical ventilation. 4. Metabolic acidosis. PLAN: Continue supportive care with tube feeds. Continue antibiotics. Continue sedation. Prognosi s is guarded.
--- NOTE | 2017-07-10 10:51 | RAD ---
PORTABLE CHEST 1 VIEW: Date: 07/10/17 Time: 0525 hours HISTORY: Respiratory failure. FINDINGS/IMPRESSION: Comparison made with exam from previous day. The previously noted patchy opacities in the lungs demonstrate interval worsening. Endotracheal and n asogastric tube positions are unchanged. POS: [facility]
[2017-07-10] MEDS: HumaLOG 300 UNITS/3 ML VIAL SC PRN ×2 (12:02→17:22)
[2017-07-10] MEDS: Propofol 1,000 MG/100 ML VIAL IV PRN ×2 (12:24→19:59)
[2017-07-11] MEDS: Piperacillin/Tazobactam 3.375 GM in Sodium Chloride 0.9% 100 ML IVPB SCH ×4 (00:36→17:44)
[2017-07-11] MEDS: HumaLOG 300 UNITS/3 ML VIAL SC PRN ×4 (01:28→18:19)
[2017-07-11] MEDS: Propofol 1,000 MG/100 ML VIAL IV PRN ×3 (03:01→18:10)
[2017-07-11 04:25] LABS: Band 18 % (5-11); Eosinophils 1 % (0-10); Hemoglobin 8.3 g/dL (12.0-16.0); Lymphocytes 14 % (21-51); MDiff Complete? YES; Mean Corpuscular Hemoglobin 31.4 pg (27.0-31.0); Mean Platelet Volume 7.7 fL (7.4-10.4); Monocytes 3 % (0-10); Neutrophil 64 % (42-75); PLT Morphology Comment Appears Adequate; Platelet Count 144 thou/uL (130-400); RBC Distribution Width 11.8 % (11.5-14.5); Red Blood Cell (RBC) Count 2.64 mill/uL (4.20-5.40)
[2017-07-11 04:32] LABS: Anion Gap 11 mmol/L (10-20); BUN (Urea Nitrogen) 25 mg/dL (9.8-20.1); Calc. Creatinine Clearance 58 mL/min (70-130); Calcium 8.6 mg/dL (7.8-10.44); Carbon Dioxide 20 mmol/L (23-31); Chloride 113 mmol/L (98-107); Estimated GFR-MDRD 37; Glucose 189 mg/dL (80-115); Potassium 3.6 mmol/L (3.5-5.1); Sodium 140 mmol/L (136-145)
[2017-07-11] MEDS: Sodium Chloride 0.9% 1,000 ML IV SCH (05:25)
[2017-07-11 07:03] LABS: Actual Bicarbonate (HCO3a) 18.3 mEq/L (22-26); Base Excess (BEa) -6.4 mEq/L (0 (+/-) 2.5); CO2 Tension 32.5 mmHg (35.0-45.0); Hematocrit-ABG 21.5 % (36.0-47.0); Hemoglobin (Hb) 7.6 g/dL (12.0-16.0); O2 Tension (PaO2) 75.2 mmHg (80.0-100.0); Potassium - ABG Lab 3.5 mmol/L (3.70-5.30); pH, Arterial 7.37 (7.35-7.45)
[2017-07-11 07:04] LABS: ALV-art Gradient 311.975 (0-20); Calcium, Ionized 1.2 mmol/L (1.12-1.30); Puncture Site RRA
[2017-07-11] MEDS ORDERED: Furosemide 40 MG/4 ML VIAL SLOW IVP SCH (08:00)
[2017-07-11] MEDS: Enoxaparin Sodium 40 MG/0.4 ML SYRINGE SC SCH (08:34)
[2017-07-11] MEDS: Famotidine/PF 20 mg/2ml Vial SLOW IVP SCH (08:36)
--- NOTE | 2017-07-11 08:50 | RAD ---
PORTABLE CHEST 1 VIEW: Date: 07/11/17 Time: 0512 hours HISTORY: Respiratory failure. FINDINGS/IMPRESSION: There is minimal improvement in the patchy opacities in the right lung since yesterday's exam. Remain evita of exam is otherwise stable. POS: [facility]
[2017-07-11] MEDS ORDERED: Levothyroxine 100 MCG SDV SLOW IVP SCH (09:00)
[2017-07-11] MEDS ORDERED: Prevnar 13-Val Conj/PF 0.5 ML SYRINGE IM ONE (09:00)
--- NOTE | 2017-07-11 09:01 | PRG ---
DATE OF SERVICE: 07/11/2017 SUBJECTIVE: The patient is seen and examined at bedside. She is intubated and sedated. There were no any unexpected events overnight. OBJECTIVE: VITAL SIGNS: Blood pressure is 156/76, pulse is 109, respiratory rate is 18, pulse oximetry is 92%. She is on FIO2 of 60%, tidal volume is 500, frequency is 20. GENERAL: She is orally intubated. HEENT: Her pupils are approximately 2 mm, minimally responding to light. CHEST: Rales bilaterally, no wheezing. HEART: S1, S2, tachycardic, no S3, no S4. ABDOMEN: Soft, nondistended. Bowel sounds are present. EXTREMITIES: No clubbing, cyanosis or edema. She has warm extremities. Pulses are palpable on both feet. LABORATORY DATA: Showed a white count of 8.0, hemoglobin 8.3, hematocrit 25.1, platelet count of 144 . ABG showed pH of 7.37, pCO2 32.5, pO2 of 75.2, bicarbonate is 18.3. Sodium 140, potassium 3.6, ch loride 113, CO2 20, BUN 25, creatinine 1.41, glucose 189, glycemia is ranging from 189-202, calcium 8 .6. IMPRESSION: 1. Status post cardiopulmonary resuscitation after she had cardiac pulmonary arrest with some signs of anoxic injury. 2. Acute respiratory failure on mechanical ventilation. 3. Metabolic acidosis. 4. Acute kidney injury. 5. Hypertension. 6. Hypothyroidism. PLAN: Continue current care. Continue NG tube feeding. Continue IV antibiotics. Continue respirat ory therapy. Ventilator management per Pulmonary. Prognosis is guarded. She is not showing a eron l brain function after her propofol is stopped. She gets agitated. She requires fentanyl and her fu rther prognosis depends on how she recovers from this. We will start her beta gladys through the NG tube and Levothyroxine 50 mcg IV push slowly. The rest of her home medications will be on hold.
[2017-07-11] MEDS: Metoprolol Tartrate 50 MG TAB PO SCH ×2 (10:33→21:16)
--- NOTE | 2017-07-11 11:08 | PRG ---
DATE OF SERVICE: 07/11/2017 Thiry-five minutes critical care time. SUBJECTIVE: The patient remains intubated on mechanical ventilation. There have been no acute mcgee es overnight. When she is stimulated, she withdraws with her left leg and her arms. She also bites the endotracheal tube. She is currently intubated with a size 6 endotracheal tube. PHYSICAL EXAMINATION: VITAL SIGNS: Her temperature is 99.9 with a T-max of 100.2, pulse is 105, blood pressure 155/84. A 24-hour intake 3210, output 1798. HEENT: Pupils are reactive. Sclerae are anicteric. Oropharynx: Endotracheal tube in place. NECK: No JVD. LUNGS: Coarse breath sounds with rhonchi bilaterally. CARDIOVASCULAR: S1, S2 regular. ABDOMEN: Soft, nontender, nondistended. EXTREMITIES: No clubbing, cyanosis, or edema. LABORATORY DATA: White blood cell count 8.0, hemoglobin 8.3, hematocrit 25.1, platelet count 144. P H of 7.37, pCO2 of 32, PO2 of 75 on SIMV rate 20, tidal volume 500, PEEP 7, pressure support 10, FIO2 60%. Sodium 140, potassium 3.6, chloride 113, CO2 of 20, BUN 25, creatinine 1.4, glucose 189. IMAGING: Chest x-ray shows bilateral infiltrative changes mainly in the perihilar distribution, left eye frame is blurred. Endotracheal tube appears to be in good position. ASSESSMENT: 1. Status post cardiopulmonary arrest with deep anoxic brain injury. 2. Renal insufficiency. 3. Acute respiratory failure, requiring mechanical ventilation. 4. Volume overload. 5. Improved metabolic acidosis. PLAN: 1. Right femoral line will be discontinued. 2. I will initiate palliative care to see if they can help with complex family decision making hopef ully work towards DNR. 3. Apparently, the patient was functioning at the level of a 6-year-old prior to the code. My assum ption would be that this is a best significant anoxic brain injury and she will be unable to return t o her previous state of being. 4. Try to cut back on fluids and diurese the patient some.
[2017-07-11] MEDS: hydrALAZINE 20 MG/ML VIAL SLOW IVP PRN (17:43)
[2017-07-11] MEDS: fentaNYL Citrate/PF 2,000 MCG in Sodium Chloride 0.9% 60 ML IV SCH (18:57)
[2017-07-12] MEDS: HumaLOG 300 UNITS/3 ML VIAL SC PRN ×4 (00:17→18:22)
[2017-07-12] MEDS: Propofol 1,000 MG/100 ML VIAL IV PRN ×3 (00:18→17:42)
[2017-07-12] MEDS: Piperacillin/Tazobactam 3.375 GM in Sodium Chloride 0.9% 100 ML IVPB SCH ×4 (00:18→18:20)
[2017-07-12] MEDS: Levothyroxine Sodium 100 MCG TAB PER TUBE SCH (05:15)
[2017-07-12 06:04] LABS: Anion Gap 12 mmol/L (10-20); BUN (Urea Nitrogen) 21 mg/dL (9.8-20.1); Calc. Creatinine Clearance 69 mL/min (70-130); Calcium 8.7 mg/dL (7.8-10.44); Carbon Dioxide 21 mmol/L (23-31); Chloride 110 mmol/L (98-107); Estimated GFR-MDRD 45; Glucose 169 mg/dL (80-115); Potassium 3.2 mmol/L (3.5-5.1); Sodium 140 mmol/L (136-145)
[2017-07-12 06:17] LABS: Band 4 % (5-11); Eosinophils 2 % (0-10); Hemoglobin 8.3 g/dL (12.0-16.0); Lymphocytes 8 % (21-51); MDiff Complete? YES; Mean Corpuscular HGB CONC 32.4 g/dL (32.0-36.0); Mean Corpuscular Hemoglobin 31.1 pg (27.0-31.0); Mean Corpuscular Volume 95.8 fl (81.0-99.0); Mean Platelet Volume 7.9 fL (7.4-10.4); Metamyelocyte 1 % (0-0); Monocytes 9 % (0-10); Neutrophil 76 % (42-75); PLT Morphology Comment Appears Adequate; Platelet Count 156 thou/uL (130-400); RBC Distribution Width 11.6 % (11.5-14.5); RBC Morphology Normal; Red Blood Cell (RBC) Count 2.68 mill/uL (4.20-5.40); White Blood Cell (WBC) Count 7.8 thou/uL (4.8-10.8)
[2017-07-12 07:52] LABS: Actual Bicarbonate (HCO3a) 21.7 mEq/L (22-26); Base Excess (BEa) -1.7 mEq/L (0 (+/-) 2.5); CO2 Tension 31.6 mmHg (35.0-45.0); Hematocrit-ABG 26.4 % (36.0-47.0); Hemoglobin (Hb) 9.1 g/dL (12.0-16.0); O2 Tension (PaO2) 101.8 mmHg (80.0-100.0); pH, Arterial 7.46 (7.35-7.45)
[2017-07-12 07:53] LABS: Calcium, Ionized 1.3 mmol/L (1.12-1.30); Puncture Site RRA
[2017-07-12] MEDS: Metoprolol Tartrate 50 MG TAB PO SCH ×2 (08:38→20:42)
[2017-07-12] MEDS: Enoxaparin Sodium 40 MG/0.4 ML SYRINGE SC SCH (08:38)
[2017-07-12] MEDS: Famotidine 20 MG TAB PO SCH ×2 (08:39→20:42)
--- NOTE | 2017-07-12 09:39 | RAD ---
AP VIEW CHEST: DATE: 07/12/17. COMPARISON: Comparison is made to previous exam from 07/11/17. FINDINGS: AP chest demonstrates nasogastric and endotracheal tubes to be in place. Cardiomegaly and pulmonary vascular congestion is seen. There appears to be some minimal blunting of the costophrenic angles co mpatible with tiny bilateral pleural effusions. No significant interval change is seen. FINDINGS: Cardiomegaly, pulmonary vascular congestion, and tiny bilateral pleural effusions. Radiographic appe arance of the chest is stable. No significant interval change is seen. POS: [facility]
[2017-07-12] MEDS: hydrALAZINE 20 MG/ML VIAL SLOW IVP PRN (13:07)
--- NOTE | 2017-07-12 13:37 | PDOC.PN ---
- Subjective Encounter Start Date: 07/12/17 Encounter Start Time: 12:30 Patient seen and examined. Intubated on Vent. No overnight events - Objective Resuscitation Status: Resuscitation Status FULL:Full Resuscitation MAR Reviewed: Yes Vital Signs & Weight: Vital Signs (12 hours) Temp Pulse Resp Pulse Ox 07/12/17 13:27 101 H 07/12/17 13:07 97 07/12/17 10:41 97 07/12/17 10:00 20 07/12/17 08:00 98.8 F 87 20 100 07/12/17 07:08 79 07/12/17 06:00 20 07/12/17 04:00 99.2 F 20 07/12/17 02:11 96 07/12/17 02:00 20 Weight Admit Weight 207 lb 14.32 oz Weight 207 lb 14.32 oz Most Recent Monitor Data Heart Rate from ECG 94 NIBP 158/69 NIBP BP-Mean 88 Respiration from ECG 23 SpO2 98 I&O: 07/11/17 07/12/17 07/13/17 06:59 06:59 06:59 Intake Total 3210.8 2175.5 Output Total 1798 4285 175 Balance 1412.8 -2109.5 -175 Result Diagrams: 07/12/17 05:39 07/12/17 05:39 Additional Labs: Accuchecks 07/12/17 07/12/17 07/12/17 11:38 04:45 00:17 POC Glucose 187 H 180 H 152 H 07/11/17 17:56 POC Glucose 220 H Radiology Reviewed by me: Yes (CXR - Pulm Vas congestion) EKG Reviewed by me: Yes (Tele SR) Phys Exam - Physical Examination Constitutional: NAD (on Vent) Respiratory: no wheezing Scat rales/rhonchi at bases, Symmetrical Cardiovascular: RRR, no rub no heaves/pulsations Gastrointestinal: soft, non-tender, positive bowel sounds Neuro/Psych - Cannot assess due to current cognition. Dx/Plan - Plan DVT proph w/SCDs IMPRESSION: 1. Cardiopulmonary arrest due to foreign body aspiration s/p CPR with ?anoxic brain injury 2. Aspiration pneumonitis/Acute hypoxic-hypercapneic respiratory failure - on mech Vent 3. ELVIRA on CKD 3/Hypokalemia 4. Obesity BMI 35.7/ Mental retardation/HTN/Hypothyroidism/DM2 PLAN: * Cont Zosyn * Critical care following * Cont to monitor * Replace Potassium * AM labs * On [facility] Vent Review of Systems - Review of Systems Other: Cannot obtain due to current cognition - Medications/Allergies Allergies/Adverse Reactions: Allergies Allergy/AdvReac Type Severity Reaction Status Date / Time No Allergy Information Allergy Verified 07/09/17 05:06 Available Medications: Current Medications Acetaminophen (Tylenol) 650 mg UT Q4H PRN PRN Reason: Headache/Fever or Pain Artificial Tears (Tears Naturale) 0 drop EA EYE PRN PRN PRN Reason: Dry Eyes Bisacodyl (Dulcolax) 10 mg UT DAILYPRN PRN PRN Reason: Constipation Dextrose/Water (Dextrose 50%) 25 gm SLOW IVP PRN PRN PRN Reason: Hypoglycemia Enoxaparin Sodium (Lovenox) 40 mg SC 0900 LANA Last Admin: 07/12/17 08:38 Dose: 40 mg Famotidine (Pepcid) 20 mg PO Q12HR LANA Last Admin: 07/12/17 08:39 Dose: 20 mg Glucagon (Glucagon) 1 mg IM PRN PRN PRN Reason: Hypoglycemia Hydralazine HCl (Apresoline) 10 mg SLOW IVP Q4H PRN PRN Reason: Systolic BP > 180 Last Admin: 07/12/17 13:07 Dose: 10 mg Fentanyl Citrate 2,000 mcg/ (Sodium Chloride) 100 mls @ 0 mls/hr IV INF LANA; Per Protocol PRN Reason: Protocol Stop: 08/08/17 00:19 Last Admin: 07/11/17 18:57 Dose: 100 mls Fentanyl Citrate (Fentanyl Bolus) 250 mls @ 0 mls/hr IVPB PRN PRN; As Directed PRN Reason: Breakthrough pain Stop: 08/08/17 00:19 Dextrose/Water (D5w) 1,000 mls @ 0 mls/hr IV .Q0M PRN; As Directed PRN Reason: Hypoglycemia Piperacillin Sod/Tazobactam (Sod 3.375 gm/ Sodium Chloride) 100 mls @ 200 mls/ hr IVPB Q6HR LANA Last Admin: 07/12/17 13:07 Dose: 100 mls Norepinephrine Bitartrate (Levophed) 250 mls @ 0 mls/hr IVPB INF PRN; Protocol ; Titrate PRN Reason: Blood Pressure Insulin Human Lispro (Humalog) 0 units SC .MODERATE SLIDING SC PRN PRN Reason: Moderate Correctional Scale Last Admin: 07/12/17 13:31 Dose: 2 unit Insulin Human Lispro (Humalog) 0 units SC .BEDTIME SLIDING SC PRN PRN Reason: Bedtime Correctional Scale Levothyroxine Sodium (Synthroid) 100 mcg PER TUBE 0600 [facility] Last Admin: 07/12/17 05:15 Dose: 100 mcg Lorazepam (Ativan) 2 mg SLOW IVP Q2H PRN PRN Reason: Anxiety to achieve Mitchell 2-3 Stop: 08/08/17 00:19 Last Admin: 07/09/17 17:32 Dose: 2 mg Metoprolol Tartrate (Lopressor) 50 mg PO BID [facility] Last Admin: 07/12/17 08:38 Dose: 50 mg Mineral Oil/White Petrolatum (Eucerin Cream) 0 gm TOP BIDPRN PRN PRN Reason: Dry Skin Morphine Sulfate (Morphine) 2 mg SLOW IVP Q2H PRN PRN Reason: Breakthrough pain Stop: 08/08/17 00:22 Ondansetron HCl (Zofran Odt) 4 mg PO Q6H PRN PRN Reason: Nausea/Vomiting Ondansetron HCl (Zofran) 4 mg IVP Q6H PRN PRN Reason: Nausea/Vomiting Propofol (Diprivan) 1,000 mg IV INF PRN; Protocol PRN Reason: TO ACHIEVE MITCHELL SCORE 2-3 Stop: 08/08/17 00:19 Last Admin: 07/12/17 07:48 Dose: 1,000 mg Sodium Biphosphate/Sodium Phosphate (Fleet Enema) 133 ml UT ONE PRN PRN Reason: Constipation Stop: 07/15/17 07:33 Sodium Chloride (Flush - Normal Saline) 10 ml IVF Q12HR [facility] Last Admin: 07/12/17 08:39 Dose: 10 ml Sodium Chloride (Flush - Normal Saline) 10 ml IVF PRN PRN PRN Reason: Saline Flush
[2017-07-12] MEDS ORDERED: [UNRECOGNIZED DRUG - REMARK] IVPB PRN (13:43)
--- NOTE | 2017-07-12 16:01 | PRG ---
DATE OF SERVICE: 07/12/2017 SUBJECTIVE: Ms. Matson barely open her eyes with stimulation and coughing. PHYSICAL EXAMINATION: VITAL SIGNS: Her heart rate is 101, blood pressure 161/74, respiratory rate is per mechanical venti lation. LUNGS: Clear. HEART: Regular rhythm. S1 and S2 are normal. ABDOMEN: Soft and nontender. EXTREMITIES: Without asymmetry. LABORATORY DATA: White count 7.8, hemoglobin 8.3, and platelets 156. Sodium 140, potassium 3.2, chloride 110, bicarbonate 21, BUN 21, creatinine 1.19, glucose 169. PH 7.46, pCO2 31, pO2 101. IMPRESSION: 1. Respiratory failure after an out of hospital arrest associated with choking on a hotdog. 2. Severe anoxic injury. Recommended we decrease her ventilatory rate. Also recommended we will do an EEG just to make sure we are not missing some subclinical seizure activity, but I suspect her pro gnosis for any type of functional recovery is terrible as I have explained to her sister, who has bee n her primary fisher hand line. We will meet with family again and update them tomorrow. They are contemplating withdrawal of care. Sister tells me she would not want tracheostomy or feeding tube. Critical care time 35 minutes.
[2017-07-13] MEDS: Piperacillin/Tazobactam 3.375 GM in Sodium Chloride 0.9% 100 ML IVPB SCH ×3 (00:07→13:32)
[2017-07-13] MEDS: HumaLOG 300 UNITS/3 ML VIAL SC PRN ×2 (00:08→05:44)
[2017-07-13] MEDS: Propofol 1,000 MG/100 ML VIAL IV PRN ×2 (00:12→07:13)
[2017-07-13 05:04] LABS: Anion Gap 11 mmol/L (10-20); BUN (Urea Nitrogen) 21 mg/dL (9.8-20.1); Calc. Creatinine Clearance 79 mL/min (70-130); Calcium 8.7 mg/dL (7.8-10.44); Carbon Dioxide 23 mmol/L (23-31); Chloride 111 mmol/L (98-107); Estimated GFR-MDRD 53; Glucose 173 mg/dL (80-115); Magnesium 1.3 mg/dL (1.6-2.6); Sodium 142 mmol/L (136-145)
[2017-07-13 05:22] LABS: Band 4 % (5-11); Eosinophils 1 % (0-10); Hemoglobin 7.9 g/dL (12.0-16.0); Lymphocytes 18 % (21-51); MDiff Complete? YES; Mean Corpuscular HGB CONC 32.1 g/dL (32.0-36.0); Mean Corpuscular Hemoglobin 30.4 pg (27.0-31.0); Mean Corpuscular Volume 94.6 fl (81.0-99.0); Mean Platelet Volume 7.9 fL (7.4-10.4); Metamyelocyte 1 % (0-0); Monocytes 5 % (0-10); Neutrophil 71 % (42-75); PLT Morphology Comment Appears Adequate; Platelet Count 169 thou/uL (130-400); RBC Distribution Width 11.7 % (11.5-14.5); White Blood Cell (WBC) Count 5.5 thou/uL (4.8-10.8)
[2017-07-13] MEDS: Levothyroxine Sodium 100 MCG TAB PER TUBE SCH (05:43)
[2017-07-13 07:48] LABS: Actual Bicarbonate (HCO3a) 22.6 mEq/L (22-26); Base Excess (BEa) -0.9 mEq/L (0 (+/-) 2.5); Hemoglobin (Hb) 7.7 g/dL (12.0-16.0); O2 Tension (PaO2) 78.4 mmHg (80.0-100.0); pH, Arterial 7.47 (7.35-7.45)
[2017-07-13 07:49] LABS: Calcium, Ionized 1.2 mmol/L (1.12-1.30); Carboxyhemoglobin (COHb) 1.1 gm% (0.0-3.0); Potassium - ABG Lab 2.7 mmol/L (3.70-5.30); Puncture Site RRA
--- NOTE | 2017-07-13 08:14 | EEG ---
Referring Physician: Nasra KO EEG # [id number] TEST TYPE: ROUTINE PORTABLE INPATIENT REPORT: AN EEG USING THE INTERNATIONAL TEN-TWENTY SYSTEM OF ELECTRODE PLACEMENT WAS PERFORMED. The best waking background is a 6 hertz theta frequency which was poorly maintained. The dominant background appeared to be more delta frequencies. There were periodic generalized discharges bordering on a burst-suppression appearance seen frequently through the study. No sleep transients were noted. Photic stimulation was unremarkable. IMPRESSION: THIS IS AN ABNORMAL STUDY FOR THE FINDINGS OF DIFFUSE SLOWING WITH SOME PERIODIC DISCHARGES SUGGESTING A DIFFUSE ENCEPHALOPATHIC PROCESS. CLINICAL CORRELATION IS INDICATED. 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
--- NOTE | 2017-07-13 08:20 | RAD ---
AP CHEST: History: Ventilator dependent patient. Date: 07-13-17 Comparison: 07-12-17 FINDINGS: AP chest demonstrates nasogastric and endotracheal tubes to be in place. Cardiomegaly is seen. Pulmon elijah vascular congestion is seen. Numerous EKG leads seen over the chest. There are bilateral airspace opacities seen. These may represent bilateral pulmonary edema or bilater al pneumonias. Radiographic appearance of the chest is not significantly changed since the previous d ay. IMPRESSION: Stable AP chest. POS: [facility]
[2017-07-13] MEDS ORDERED: CCU Electrolyte Replacement 1 EACH FS ONE (09:20)
[2017-07-13] MEDS ORDERED: Magnesium 2 GM/NS 0.9% 100 ML 2 GM in Premix Bag 1 BAG IVPB PRN (09:25)
[2017-07-13] MEDS ORDERED: Potassium Chloride 40 MEQ in Premix Bag 1 BAG IVPB PRN (09:25)
[2017-07-13] MEDS ORDERED: Potassium Chloride 40 MEQ in Sodium Chloride 0.9% 250 ML 250 ML IVPB PRN (09:25)
[2017-07-13] MEDS ORDERED: Magnesium Oxide 400 MG TAB PO PRN ×2 (09:25)
[2017-07-13] MEDS ORDERED: Potassium Chloride 20 MEQ TAB PO PRN (09:25)
[2017-07-13] MEDS ORDERED: Potassium Phosphate 12 MMOL in Sodium Chloride 0.9% 250 ML 250 ML IV PRN (09:25)
[2017-07-13] MEDS ORDERED: Potassium Phosphate 9 MMOL in Sodium Chloride 0.9% 100 ML IVPB PRN (09:25)
[2017-07-13] MEDS ORDERED: Potassium Phosphate 15 MMOL in Sodium Chloride 0.9% 250 ML 250 ML IV PRN (09:25)
[2017-07-13] MEDS: Famotidine 20 MG TAB PO SCH (09:36)
[2017-07-13] MEDS: Enoxaparin Sodium 40 MG/0.4 ML SYRINGE SC SCH (09:36)
[2017-07-13] MEDS: Metoprolol Tartrate 50 MG TAB PO SCH (09:36)
--- NOTE | 2017-07-13 19:28 | PDOC.PN ---
- Subjective Encounter Start Date: 07/13/17 Encounter Start Time: 13:00 Patient seen and examined. On Vent. No overnight events - Objective Resuscitation Status: Resuscitation Status DNR:Do Not Resuscitate MAR Reviewed: Yes Vital Signs & Weight: Vital Signs (12 hours) Temp Pulse Resp BP Pulse Ox 07/13/17 16:40 116 H 33 H 84 L 07/13/17 16:00 99.4 F 14 07/13/17 15:06 85 121/53 L 07/13/17 14:00 14 07/13/17 12:41 87 07/13/17 12:00 100 F H 14 07/13/17 10:08 104 H 07/13/17 10:00 14 07/13/17 08:00 100.5 F H 99 20 Weight Admit Weight 207 lb 14.32 oz Weight 207 lb 14.32 oz Most Recent Monitor Data Heart Rate from ECG 111 NIBP 162/74 NIBP BP-Mean 97 Respiration from ECG 33 SpO2 94 I&O: 07/12/17 07/13/17 07/14/17 06:59 06:59 06:59 Intake Total 2175.5 1437.8 100 Output Total 4285 1430 610 Balance -2109.5 7.8 -510 Result Diagrams: 07/13/17 03:16 07/13/17 03:16 Additional Labs: Accuchecks 07/13/17 07/13/17 12:59 00:08 POC Glucose 195 H 165 H EKG Reviewed by me: Yes (Tele SR) Phys Exam - Physical Examination Constitutional: NAD (on Vent) Respiratory: no wheezing Coarse BS B/L Cardiovascular: RRR, no rub Gastrointestinal: soft, non-tender, positive bowel sounds Musculoskeletal: no edema Dx/Plan - Plan DVT proph w/SCDs IMPRESSION: 1. Cardiopulmonary arrest due to foreign body aspiration s/p CPR with ?anoxic brain [facility] 2. Aspiration pneumonitis/Acute hypoxic-hypercapneic respiratory failure - [facility] 3. ELVIRA on CKD 3/Hypokalemia/Hypomagnesemia 4. Obesity BMI 35.7/ Mental retardation/HTN/Hypothyroidism/DM2 PLAN: * s/p EEG * Possible terminal extubation today * Cont Zosyn * Critical care following * Cont to monitor * Replace Potassium/Magnessium Review of Systems - Review of Systems Other: Cannot obtain due to current mentation - Medications/Allergies Allergies/Adverse Reactions: Allergies Allergy/AdvReac Type Severity Reaction Status Date / Time No Allergy Information Allergy Verified 07/09/17 05:06 Available Medications: Current Medications Acetaminophen (Tylenol) 650 mg KS Q4H PRN PRN Reason: Headache/Fever or Pain Artificial Tears (Tears Naturale) 0 drop EA EYE PRN PRN PRN Reason: Dry Eyes Bisacodyl (Dulcolax) 10 mg KS DAILYPRN PRN PRN Reason: Constipation Dextrose/Water (Dextrose 50%) 25 gm SLOW IVP PRN PRN PRN Reason: Hypoglycemia Glucagon (Glucagon) 1 mg IM PRN PRN PRN Reason: Hypoglycemia Hydralazine HCl (Apresoline) 10 mg SLOW IVP Q4H PRN PRN Reason: Systolic BP > 180 Last Admin: 07/12/17 13:07 Dose: 10 mg Dextrose/Water (D5w) 1,000 mls @ 0 mls/hr IV .Q0M PRN; As Directed PRN Reason: Hypoglycemia Insulin Human Lispro (Humalog) 0 units SC .MODERATE SLIDING SC PRN PRN Reason: Moderate Correctional Scale Last Admin: 07/13/17 05:44 Dose: 2 unit Insulin Human Lispro (Humalog) 0 units SC .BEDTIME SLIDING SC PRN PRN Reason: Bedtime Correctional Scale Lorazepam (Ativan) 2 mg SLOW IVP Q2H PRN PRN Reason: Anxiety to achieve Parra 2-3 Stop: 08/08/17 00:19 Last Admin: 07/09/17 17:32 Dose: 2 mg Miscellaneous Medication (Pharmacy To Dose) 1 each IVPB PRN PRN PRN Reason: Pharmacy to dose Morphine Sulfate (Morphine) 5 mg SLOW IVP Q2H PRN PRN Reason: Breakthrough pain Stop: 08/08/17 00:22 Last Admin: 07/13/17 16:46 Dose: 5 mg
--- NOTE | 2017-07-13 20:22 | PRG ---
DATE OF SERVICE: 07/13/2017 SUBJECTIVE: She is stable overnight hemodynamically. OBJECTIVE: VITAL SIGNS: Blood pressure this afternoon is 184/82 , heart rate is 105, respiratory rate is 30, ox imetry is 95. HEENT: Her pupils react. 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 She opens her eyes about correction with a serrano al rub. She is not localizing to any painful stimulus. She still has a gag. LUNGS: Clear anteriorly. CARDIOVASCULAR: Regular rate and rhythm. S1 and S2 are normal. ABDOMEN: Soft and nontender. EXTREMITIES: Without clubbing, cyanosis, or edema. NEUROLOGIC: Otherwise, not improved. LABORATORY DATA: EEG suggested burst suppression. White count 5.5, hemoglobin 7.9, platelets 169,000. Sodium 142, potassium 3, chloride 111, bicarbona te 23, BUN 21, creatinine 1.04, glucose 173. A pH 7.47, pCO2 of 32, pO2 of 78. I sat down with family this morning for about 30 minutes, we discussed the options. They wanted to w ithdrawal support. All medicines have been discontinued and she was to be extubated when all the fam kaitlynn has come to see her. I explained to family, she may not pass away quickly. They do not want tub e feedings, they do not want to trachea, they do not want reintubation or cardioversion and just want ed to focus on keeping her comfortable, which I feel is appropriate. Critical care time 30 minutes.
[2017-07-13] MEDS ORDERED: Lorazepam 2 MG/ML VIAL SLOW IVP PRN (22:29)
[2017-07-13] MEDS ORDERED: Morphine 10 MG/ML CARPUJECT SLOW IVP PRN (22:56)
[2017-07-14] MEDS: Morphine 10 MG/ML CARPUJECT SLOW IVP PRN ×6 (01:18→16:36)
[2017-07-14] MEDS ORDERED: Scopolamine 1.5 mg/72 hour Patch TD SCH (13:00)
--- NOTE | 2017-07-14 15:35 | PRG ---
DATE OF SERVICE: 07/14/2017 SUBJECTIVE: Ms. Matson is unresponsive. She has upper airway rhonchi. We placed a scopolamine patch on her and given her morphine for comfort. She is not arousable. OBJECTIVE: LUNGS: Unchanged. HEART: Unchanged. ABDOMEN: Unchanged. Family is at the bedside. LABORATORY DATA: Lab work has been discontinued. PLAN: We are attempting to get her admitted to inpatient hospice. The sister and nephew are very ap preciative of the care given her so far.
[2017-07-14 17:09] VITALS: BP 147/81; TEMP 99.8
--- NOTE | 2017-07-14 20:35 | DIS ---
DATE OF DISCHARGE: 07/14/2017 DISCHARGE DISPOSITION: Inpatient hospice. The patient was seen on the day of discharge. INPATIENT SAW FILER: Pulmonary, Dr. Tuttle. BRIEF HOSPITAL COURSE: The patient is a 67-year-old female with hypertension, diabetes, and mental r etardation, presented to the emergency room by EMS on 07/09/2017 with unresponsiveness. The patient apparently choked on a hot dog. She was intubated by EMS. She also received CPR by the family. Mar molina refer to the history and physical dated 07/09/2017 for further details. The patient was admitted to the Intensive Care Unit with the diagnosis of acute respiratory failure/c ardiopulmonary arrest due to foreign body aspiration. She was placed on mechanical ventilation. She was later found to have anoxic brain injury. An EEG was performed yesterday that showed diffuse slo wing with some periodic discharges suggesting diffuse encephalopathic process. She was terminally ex tubated yesterday after discussion with the family. She will be discharged to inpatient hospice to y. FINAL DIAGNOSES: 1. Cardiopulmonary arrest due to foreign body aspiration, status post cardiopulmonary resuscitation with anoxic brain injury. The patient was terminally extubated yesterday. 2. Aspiration pneumonitis. The patient was placed on IV antibiotics this hospitalization. 3. Acute hypoxic and hypercapnic respiratory failure. Blood gases on admission showed pH of 7.22 wi th pCO2 of 49.8, pO2 of 116.9. 4. Acute kidney injury on chronic kidney disease, stage 3. Creatinine on discharge is 1.04. Maximu m creatinine was 1.92. 5. Hypokalemia. 6. Hypomagnesemia. 7. Elevated troponins secondary to demand ischemia/cardiopulmonary resuscitation. 8. Lactic acidosis. 9. Abnormal liver function tests, probably secondary to hypoperfusion injury. 10. Obesity with a BMI 35.7. 11. Mental retardation. 12. Hypertension. 13. Hypothyroidism. 14. Diabetes mellitus type 2. 15. Gastroesophageal reflux disease. 16. Irritable bowel syndrome. 17. Hyponatremia. Plan of care was discussed with the family, they stated understanding.
--- NOTE | 2017-07-31 17:33 | EKG ---
Test Reason : Blood Pressure : / mmHG Vent. Rate : 119 BPM Atrial Rate : 119 BPM P-R Int : 144 ms QRS Dur : 116 ms QT Int : 364 ms P-R-T Axes : 071 -50 116 degrees QTc Int : 512 ms Sinus tachycardia Left anterior fascicular block Left ventricular hypertrophy with QRS widening and repolarization abnormality Cannot rule out Inferior infarct (masked by fascicular block?) , age undetermined Abnormal ECG Confirmed by LEAH NAVARRETE, RADHA ([id number]), editorial specialist ERMELINDA LUNA ([id number]) on 07/31/2017 5:33:17 PM Referred By: Confirmed By:RADHA LYNN MD
== END 2017-07-14 21:49 | disposition hospice, inpatient (51) | DRG 207 ==
LOC: ERS 19:56 → CCU 07-09 00:07 → MERGE 07-09 00:07 → CCU 07-11 13:12 → ONC 07-14 16:54
PROVIDERS: ADMIT Internal Medicine; ATTEND Internal Medicine
PROC: 5A1955Z Respiratory Ventilation, Greater than 96 Consecutive Hours (ICD-10-PCS; principal; 2017-07-09)
DX: T17.920A Food in respiratory tract, part unspecified causing asphyxiation, initial encounter (principal); I46.8 Cardiac arrest due to other underlying condition; J69.0 Pneumonitis due to inhalation of food and vomit; G93.1 Anoxic brain damage, not elsewhere classified; E87.4 Mixed disorder of acid-base balance; N17.9 Acute kidney failure, unspecified; E83.42 Hypomagnesemia; I24.8 Other forms of acute ischemic heart disease; J96.01 Acute respiratory failure with hypoxia; J96.02 Acute respiratory failure with hypercapnia; E87.1 Hypo-osmolality and hyponatremia; E11.22 Type 2 diabetes mellitus with diabetic chronic kidney disease; Z66 Do not resuscitate; N18.3 Chronic kidney disease, stage 3 (moderate); E87.6 Hypokalemia; E66.9 Obesity, unspecified; Z68.35 Body mass index [BMI] 35.0-35.9, adult; F79 Unspecified intellectual disabilities; I12.9 Hypertensive chronic kidney disease with stage 1 through stage 4 chronic kidney disease, or unspecified chronic kidney disease; E03.9 Hypothyroidism, unspecified; K75.89 Other specified inflammatory liver diseases; E78.5 Hyperlipidemia, unspecified; K21.9 Gastro-esophageal reflux disease without esophagitis; D72.825 Bandemia; F41.8 Other specified anxiety disorders; D63.1 Anemia in chronic kidney disease; D25.9 Leiomyoma of uterus, unspecified; I95.9 Hypotension, unspecified; E87.70 Fluid overload, unspecified; K58.9 Irritable bowel syndrome, unspecified
CPT/HCPCS: 36415; 36416; 36556; 70450; 71045; 71260; 74177; 80048; 82805; 83605; 83735; 84484; 85007; 85025; 85027; 85610; 85730; 87086; 93005; 94002; 94003; 95816; 95819; 96365; 96366; 96368; 99292; J0360; J1650; J1940; J2060; J2270; J2543; J2704; J3010; J7050; J7620; S0028